=== PATIENT | female | born 1990 | race American Indian/Alaskan Native ===

== ENCOUNTER 2019-07-25 15:51 | Emergency (ER) | payer SELFPAY ==
[2019-07-25 15:56] VITALS: BP 149/90
--- NOTE | 2019-07-25 16:48 | Emergency Department Report ---
Chief Complaint: Skin/Abscess/Foreign Body Stated Complaint: GROIN PAIN Time Seen by Provider: 07/25/19 16:39 - HPI History of Present Illness: 29-year-old -[place] female presents to the emergency room for 2-day history of swelling and painful irritated labia. Patient states that it started Thursday she had taken some bhvf-dgb-[id number] antibiotics she started feeling like she had some irritation and itchiness down in her vaginal area. Patient denies any vaginal discharge. Patient reports that is worse with movement. Patient reports that her last menstrual period was 06/24/2019 and she is not currently on any control. 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 - Exam Vital Signs: Vital Signs 07/25/19 15:55 Temperature 98.5 F Pulse Rate 77 Respiratory 20 Rate Blood Pressure 149/90 O2 Sat by Pulse 99 Oximetry Physical Exam: Alert and oriented x3 no acute distress nontoxic in appearance sitting comfortably on the bed eating chips with her child Groin exam piercing coitus gil piercing. Nonerythematous no edematous appreciated no vaginal discharge appreciated. Recommend patient to follow-up with her RABBET OPERATOR. MSE screening note: Focused history and physical exam performed. Due to findings the following was ordered: 29-year-old -[place] female presents to the emergency room for 2-day history of swelling and painful irritated labia. Patient states that it started Thursday she had taken some jswb-per-wptewqj antibiotics she started feeling like she had some irritation and itchiness down in her vaginal area. Patient denies any vaginal discharge. Patient reports that is worse with movement. Patient reports that her last menstrual period was 06/24/2019 and she is not currently on any control. 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 Examination of the vaginal area seems to be within normal limits. She does have a piercing. ED Disposition for MSE Disposition: Z- MED SCREENING EXAM-LEFT Is pt being admited?: No Does the pt Need Aspirin: No Condition: Stable Additional Instructions: Follow-up with your RABBET OPERATOR for further evaluation. Referrals: Your, RABBET OPERATOR [Other] - 3-5 Days
== END 2019-07-25 17:07 | disposition left against medical advice (07) ==
LOC: ED 15:51
DX: N89.8 Other specified noninflammatory disorders of vagina (principal); Z53.21 Procedure and treatment not carried out due to patient leaving prior to being seen by health care provider

== ENCOUNTER 2020-01-20 22:43 | Emergency (ER) | payer MEDICAID ==
--- NOTE | 2020-01-21 02:34 | Emergency Department Report ---
ED ENT HPI - General Chief complaint: Sore Throat Stated complaint: SORE THROAT/CHILLS Time Seen by Provider: 01/21/20 02:30 Source: patient Mode of arrival: Ambulatory Limitations: No Limitations - History of Present Illness Initial comments: Patient is a 29-year-old F Mongolian female has had 3 days of sore throat and sinus congestion. Patient states there is pain with swallowing 6 out of 10 in severity. Has had subjective fevers and chills. She denies nausea vomiting diarrhea. Cough is very minimal. States she is having yellowish discharge from the nose when she blows her nose. - Related Data Previous Rx's Medication Instructions Recorded Last Taken Type Amoxicillin/Potassium Clav 1 each PO BID #14 tablet 01/21/20 Unknown Rx [Augmentin 875-125 Tablet] Fluticasone [Flonase] 1 spray NS QDAY #1 bottle 01/21/20 Unknown Rx HYDROcodone/ACETAMINOPHEN 15 ml PO Q6H PRN #100 solution 01/21/20 Unknown Rx [Hydrocodon-Acetamin 7.5-325/15] predniSONE [Deltasone] 20 mg PO QDAY #5 tab 01/21/20 Unknown Rx Allergies Allergy/AdvReac Type Severity Reaction Status Date / Time No Known Allergies Allergy Unverified 07/25/19 15:55 ED Dental HPI - General Chief complaint: Sore Throat Stated complaint: SORE THROAT/CHILLS Time Seen by Provider: 01/21/20 02:30 Source: patient Mode of arrival: Ambulatory Limitations: No Limitations - Related Data Previous Rx's Medication Instructions Recorded Last Taken Type Amoxicillin/Potassium Clav 1 each PO BID #14 tablet 01/21/20 Unknown Rx [Augmentin 875-125 Tablet] Fluticasone [Flonase] 1 spray NS QDAY #1 bottle 01/21/20 Unknown Rx HYDROcodone/ACETAMINOPHEN 15 ml PO Q6H PRN #100 solution 01/21/20 Unknown Rx [Hydrocodon-Acetamin 7.5-325/15] predniSONE [Deltasone] 20 mg PO QDAY #5 tab 01/21/20 Unknown Rx Allergies Allergy/AdvReac Type Severity Reaction Status Date / Time No Known Allergies Allergy Unverified 07/25/19 15:55 ED Review of Systems ROS: Stated complaint: SORE THROAT/CHILLS Other details as noted in HPI Comment: All other systems reviewed and negative ED Past Medical Hx - Past Medical History Previous Medical History?: No - Surgical History Past Surgical History?: Yes Additional Surgical History: Tubal Ligation - Social History Smoking Status: Never Smoker Substance Use Type: None - Medications Home Medications: Home Medications Medication Instructions Recorded Confirmed Last Taken Type Amoxicillin/Potassium Clav 1 each PO BID #14 tablet 01/21/20 Unknown Rx [Augmentin 875-125 Tablet] Fluticasone [Flonase] 1 spray NS QDAY #1 bottle 01/21/20 Unknown Rx HYDROcodone/ACETAMINOPHEN 15 ml PO Q6H PRN #100 solution 01/21/20 Unknown Rx [Hydrocodon-Acetamin 7.5-325/15] predniSONE [Deltasone] 20 mg PO QDAY #5 tab 01/21/20 Unknown Rx ED Physical Exam - General Limitations: No Limitations General appearance: alert, in no apparent distress - Head Head exam: Present: atraumatic, normocephalic - Expanded Head Exam Expanded 1 - tenderness - Eye Eye exam: Present: normal appearance - ENT ENT exam: Present: mucous membranes moist - Expanded ENT Exam Expanded Ear exam: Present: normal external inspection Mouth exam: Absent: drooling, trismus, muffled voice, tongue elevation Throat exam: Positive: tonsillar erythema, tonsillomegaly, tonsillar exudate - Neck Neck exam: Present: lymphadenopathy - Respiratory Respiratory exam: Present: normal lung sounds bilaterally. Absent: respiratory distress, wheezes, rales, rhonchi - Cardiovascular Cardiovascular Exam: Present: regular rate, normal rhythm. Absent: systolic murmur, diastolic murmur, rubs, gallop - GI/Abdominal GI/Abdominal exam: Present: soft, normal bowel sounds - Extremities Exam Extremities exam: Present: normal inspection - Back Exam Back exam: Present: normal inspection - Neurological Exam Neurological exam: Present: alert, oriented X3 - Psychiatric Psychiatric exam: Present: normal affect, normal mood - Skin Skin exam: Present: warm, dry, intact, normal color. Absent: rash ED Course Vital Signs 01/20/20 23:40 Temperature 98.3 F Pulse Rate 95 H Respiratory 16 Rate Blood Pressure 152/92 O2 Sat by Pulse 100 Oximetry ED Medical Decision Making - Medical Decision Making Patient treated for exudative pharyngitis with possible sinus infections to be discharged home Critical care attestation.: If time is entered above; I have spent that time in minutes in the direct care of this critically ill patient, excluding procedure time. ED Disposition Clinical Impression: Exudative pharyngitis, Sinus congestion Disposition: DC-01 TO HOME OR SELFCARE Is pt being admited?: No Does the pt Need Aspirin: No Condition: Stable Instructions: Pharyngitis Referrals: REGINA VARGAS MD [Primary Care Provider] - 3-5 Days Time of Disposition: 02:34
[2020-01-21 03:21] VITALS: BP 136/89
== END 2020-01-21 03:02 | disposition home or self-care (01) ==
LOC: ED 22:43
DX: J02.9 Acute pharyngitis, unspecified (principal); Z98.51 Tubal ligation status; Z79.899 Other long term (current) drug therapy
CPT/HCPCS: 99282

== ENCOUNTER 2021-01-20 10:06 | Emergency (ER) | payer MEDICAID, MEDICARE ==
[2021-01-20] MEDS ORDERED: IBUPROFEN 800 MG TAB PO ONE (10:48)
--- NOTE | 2021-01-20 11:22 | Emergency Department Report ---
ED Lower Extremity HPI - General Chief Complaint: Extremity Injury, Lower Stated Complaint: LEFT ANKLE INJURY Time Seen by Provider: 01/20/21 10:44 Source: patient Mode of arrival: Wheelchair Limitations: No Limitations - History of Present Illness Initial Comments: This is a 30-year-old female nontoxic, well nourished in appearance, no acute signs of distress presents to the ED with c/o of left ankle pains x 1 day. Patient stated that while at work she twisted her ankle. Patient denies any injuries or trauma. Patient denies any numbness, tingling, fever, chills, nausea, vomiting, chest pain, shortness of breath, headache, stiff neck. Patient denies any joint swelling or joint redness. Patient denies decreased range of motion. Patient stated has decreased gait due to pain. Patient denies any allergies or significant past medical history. MD Complaint: ankle injury -: days(s) Injury: Ankle: Left Type of Injury: inversion Place: work Severity: mild Severity scale (0 -10): 8 Improves With: immobilization Worsens With: weight bearing, movement, palpation Associated Symptoms: swelling, able to partially bear weight. denies: snap/pop sensation, numbness, tingling, unable to bear weight - Related Data Previous Rx's Medication Instructions Recorded Last Taken Type Amoxicillin/Potassium Clav 1 each PO BID #14 tablet 01/21/20 Unknown Rx [Augmentin 875-125 Tablet] Fluticasone [Flonase] 1 spray NS QDAY #1 bottle 01/21/20 Unknown Rx HYDROcodone/ACETAMINOPHEN 15 ml PO Q6H PRN #100 solution 01/21/20 Unknown Rx [Hydrocodon-Acetamin 7.5-325/15] predniSONE [Deltasone] 20 mg PO QDAY #5 tab 01/21/20 Unknown Rx Naproxen 500 mg PO Q12H PRN #12 tablet 01/20/21 Unknown Rx Allergies Allergy/AdvReac Type Severity Reaction Status Date / Time No Known Allergies Allergy Unverified 07/25/19 15:55 ED Review of Systems ROS: Stated complaint: LEFT ANKLE INJURY Other details as noted in HPI Comment: All other systems reviewed and negative Constitutional: denies: chills, fever Eyes: denies: eye pain, eye discharge, vision change ENT: denies: ear pain, throat pain Respiratory: denies: cough, shortness of breath, wheezing Cardiovascular: denies: chest pain, palpitations Endocrine: no symptoms reported Gastrointestinal: denies: abdominal pain, nausea, diarrhea Genitourinary: denies: urgency, dysuria, discharge Musculoskeletal: denies: back pain, joint swelling, arthralgia Skin: denies: rash, lesions Neurological: denies: headache, weakness, paresthesias Psychiatric: denies: anxiety, depression Hematological/Lymphatic: denies: easy bleeding, easy bruising ED Past Medical Hx - Surgical History Additional Surgical History: Tubal Ligation - Social History Smoking Status: Never Smoker Substance Use Type: None - Medications Home Medications: Home Medications Medication Instructions Recorded Confirmed Last Taken Type Amoxicillin/Potassium Clav 1 each PO BID #14 tablet 01/21/20 Unknown Rx [Augmentin 875-125 Tablet] Fluticasone [Flonase] 1 spray NS QDAY #1 bottle 01/21/20 Unknown Rx HYDROcodone/ACETAMINOPHEN 15 ml PO Q6H PRN #100 solution 01/21/20 Unknown Rx [Hydrocodon-Acetamin 7.5-325/15] predniSONE [Deltasone] 20 mg PO QDAY #5 tab 01/21/20 Unknown Rx Naproxen 500 mg PO Q12H PRN #12 tablet 01/20/21 Unknown Rx ED Physical Exam - General Limitations: No Limitations General appearance: alert, in no apparent distress - Head Head exam: Present: atraumatic, normocephalic - Eye Eye exam: Present: normal appearance - Neck Neck exam: Present: normal inspection, full ROM. Absent: lymphadenopathy - Respiratory Respiratory exam: Absent: respiratory distress - Cardiovascular Cardiovascular Exam: Present: regular rate - Extremities Exam Extremities exam: Present: full ROM, tenderness, normal capillary refill, other (left negative escobedo test). Absent: pedal edema, joint swelling, calf tenderness - Expanded Lower Extremity Exam Left Hip exam: Present: normal inspection, full ROM. Absent: tenderness, swelling Upper Leg exam: Present: normal inspection, full ROM. Absent: tenderness, swelling Knee exam: Present: normal inspection, full ROM. Absent: tenderness, swelling Lower Leg exam: Present: normal inspection, full ROM. Absent: tenderness, swelling, abrasion, laceration, ecchymosis, deformity, crepidus, dislocation, erythema, palpable cord, Salma's sign Ankle exam: Present: normal inspection, full ROM, tenderness. Absent: swelling, abrasion, laceration, ecchymosis, deformity, crepidus, dislocation, erythema, anterior draw sign Foot/Toe exam: Present: normal inspection, full ROM. Absent: tenderness, swelling, abrasion, laceration, ecchymosis, deformity, crepidus, dislocation, erythema, amputation, puncture wound, foreign body, calcaneal tenderness, tenderness at base of 5th metatarsal, nail avulsion, subungual hematoma Neuro vascular tendon exam: Present: no vascular compromise Gait: Positive: observed and limited by pain 1 - pain here - Back Exam Back exam: Present: normal inspection, full ROM. Absent: tenderness, CVA tenderness (R), CVA tenderness (L), muscle spasm, paraspinal tenderness, vertebral tenderness, rash noted - Neurological Exam Neurological exam: Present: alert, oriented X3 - Psychiatric Psychiatric exam: Present: normal affect, normal mood - Skin Skin exam: Present: warm, dry, intact, normal color. Absent: rash ED Course Vital Signs 01/20/21 10:30 Temperature 98.6 F Pulse Rate 70 Respiratory 18 Rate Blood Pressure 125/84 O2 Sat by Pulse 98 Oximetry - Reevaluation(s) Reevaluation #1: 01/20/21 11:25 Patient is speaking in full sentences with no signs of distress noted. ED Lower Extremity MDM - Radiology Data [facility] [address] [place] [address] XRay Report Signed Patient: TIAN ASHLEY MR#: [id number] : 1990 Acct:[id number] Age/Sex: 30 / F ADM Date: 01/20/21 Loc: ED Attending Dr: Ordering Physician: SUZIE RODRÍGUEZ NP Date of Service: 01/20/21 Procedure(s): XR ankle 3+V LT Accession Number(s): [id number] cc: SUZIE RODRÍGUEZ NP Fluoro Time In Minutes: LEFT FOOT 3 VIEWS LEFT ANKLE 3 VIEWS INDICATION / CLINICAL INFORMATION: Pain in left foot and ankle, twisting injury. COMPARISON: None available. FINDINGS: LEFT FOOT: BONES and JOINT(S): No acute fracture or subluxation. No significant arthritis. SOFT TISSUES: No significant abnormality. ADDITIONAL FINDINGS: None. LEFT ANKLE: BONES and JOINT(S): No acute fracture or subluxation. No significant arthritis. SOFT TISSUES: No significant abnormality. ADDITIONAL FINDINGS: None. IMPRESSION: 1. No acute findings. Signer Name: Ethan Sahu MD Signed: 01/20/2021 11:19 AM Workstation Name: [id number] [id number] Transcribed By: MIGUELANGEL Dictated By: Ethan Sahu MD Electronically Authenticated By: Ethan Sahu MD Signed Date/Time: 01/20/211118 DD/ 17 TD/TT: [address] [address] XRay Report Signed Patient: TIAN ASHLEY MR#: [id number] : 1990 Acct:[id number] Age/Sex: 30 / F ADM Date: 01/20/21 Loc: ED Attending Dr: Ordering Physician: SUZIE RODRÍGUEZ NP Date of Service: 01/20/21 Procedure(s): XR foot 3+V LT Accession Number(s): [id number] cc: SUZIE RODRÍGUEZ NP Fluoro Time In Minutes: LEFT FOOT 3 VIEWS LEFT ANKLE 3 VIEWS INDICATION / CLINICAL INFORMATION: Pain in left foot and ankle, twisting injury. COMPARISON: None available. FINDINGS: LEFT FOOT: BONES and JOINT(S): No acute fracture or subluxation. No significant arthritis. SOFT TISSUES: No significant abnormality. ADDITIONAL FINDINGS: None. LEFT ANKLE: BONES and JOINT(S): No acute fracture or subluxation. No significant arthritis. SOFT TISSUES: No significant abnormality. ADDITIONAL FINDINGS: None. IMPRESSION: 1. No acute findings. Signer Name: Ethan Sahu MD Signed: 01/20/2021 11:19 AM Workstation Name: [id number] Transcribed By: MIGUELANGEL Dictated By: Ethan Sahu MD Electronically Authenticated By: Ethan Sahu MD Signed Date/Time: 01/20/211118 DD/ 17 TD/TT: - Medical Decision Making This is a 30-year-old female that presents with left ankle injury. Patient is stable and was examined by me. I referred patient to an orthopedic doctor for further evaluation for possible MRI. X-ray has been obtained and dictated by the radiologist. Patient is notified of the x-ray report with noted by the patient. Patient does have normal gait with some tenderness and no joint swelling. No ecchymosis. no joint redness or swelling. Not warm to touch. No signs of cellulites present. Patient received a ankle immobilize and crutches. Patient to be educated by RN how to use crutches. Patient was instructed to RICE therapy. Patient received Motrin for pain. Patient is discharged with naproxen. At time of discharge, the patient does not seem toxic or ill in appearance. No acute signs of distress noted. Patient agrees to discharge treatment plan of care. No further questions noted by the patient. Critical care attestation.: If time is entered above; I have spent that time in minutes in the direct care of this critically ill patient, excluding procedure time. ED Disposition Clinical Impression: Left ankle injury Qualifiers: Encounter type: initial encounter Qualified Code(s): S99.912A - Unspecified injury of left ankle, initial encounter Disposition: HOME / SELF CARE / HOMELESS Is pt being admited?: No Does the pt Need Aspirin: No Condition: Stable Instructions: RICE Therapy for Routine Care of Injuries, Gjsb-pj-Qqcl, Crutch Use, Adult, Rzjh-wc-Gtyy, Ankle Sprain Additional Instructions: Follow-up with a orthopedic doctor in 3-5 days or if symptoms worsen and continue return to emergency room as soon as possible. No physical activity that extremity until cleared by orthopedic doctor Prescriptions: Naproxen 500 mg PO Q12H PRN #12 tablet PRN Reason: Pain , Severe (7-10) Referrals: JACY BONDS MD [Primary Care Provider] - 3-5 Days NATHALIE KRISHNAN MD [Staff Physician] - 3-5 Days Forms: Work/School Release Form(ED) Time of Disposition: 11:28
[2021-01-20 11:35] VITALS: BP 125/84
== END 2021-01-20 12:10 | disposition home or self-care (01) ==
LOC: ED 10:06
DX: S99.812A Other specified injuries of left ankle, initial encounter (principal); X58.XXXA Exposure to other specified factors, initial encounter; Y93.89 Activity, other specified; Y92.89 Other specified places as the place of occurrence of the external cause; Y99.8 Other external cause status

== ENCOUNTER 2021-06-17 10:00 | Emergency (ER) | payer MEDICAID, MEDICARE ==
[2021-06-17] MEDS ORDERED: LIDOCAINE-MPF (1%) 10 MG/1 ML VIAL 5 ML INFILTRATI ONE (11:25)
[2021-06-17] MEDS ORDERED: dexAMETHasone 4 MG/ML VIAL IM ONE (11:25)
[2021-06-17] MEDS ORDERED: KETOROLAC 30 MG/1 ML INJ IM ONE (11:25)
--- NOTE | 2021-06-17 11:25 | Emergency Department Report ---
Minor Respiratory - HPI Chief Complaint: Sore Throat Stated Complaint: SORE THROAT/HARD TO SWOLLOW/FEVER Time Seen by Provider: 06/17/21 11:20 Duration: 2 Days Pain Location: Throat Severity: mild Minor Respiratory: Yes Sore Throat, Yes Able to Tolerate Fluids, Yes Cough, No Rhinorrhea, No Ear Pain, No Sick Contacts, No Hemoptysis, No Chest Pain, No Shortness of Breath, No Fever Other History: Patient is a 31-year-old female that comes to the emergency room with a sore throat. She is hoarse. She denies fever. She has a cough that is worse when lying down. Patient is ambulatory, nontoxic and czz-jne-yobkdemhu when she arrives in the fast track. Vital signs are stable. She is controlling secretions. ABCs intact. ED Review of Systems ROS: Stated complaint: SORE THROAT/HARD TO SWOLLOW/FEVER Other details as noted in HPI Comment: All other systems reviewed and negative ED Past Medical Hx - Past Medical History Previous Medical History?: Yes - Surgical History Past Surgical History?: Yes Additional Surgical History: Tubal Ligation - Family History Family history: no significant - Social History Smoking Status: Never Smoker Substance Use Type: None - Medications Home Medications: Home Medications Medication Instructions Recorded Confirmed Last Taken Type Amoxicillin/Potassium Clav 1 each PO BID #14 tablet 01/21/20 Unknown Rx [Augmentin 875-125 Tablet] Fluticasone [Flonase] 1 spray NS QDAY #1 bottle 01/21/20 Unknown Rx HYDROcodone/ACETAMINOPHEN 15 ml PO Q6H PRN #100 solution 01/21/20 Unknown Rx [Hydrocodon-Acetamin 7.5-325/15] predniSONE [Deltasone] 20 mg PO QDAY #5 tab 01/21/20 Unknown Rx Naproxen 500 mg PO Q12H PRN #12 tablet 01/20/21 Unknown Rx Amoxicillin [Trimox CAP] 500 mg PO BID #20 capsule 06/17/21 Unknown Rx methylPREDNISolone [Medrol 4MG 4 mg PO FS #1 tab.ds.pk 06/17/21 Unknown Rx DOSEPAK (21 tabs)] Minor Respiratory Exam - Exam General: Vital signs noted. No distress. Alert and acting appropriately. HEENT: Yes Pharyngeal Erythema, Yes Pharyngeal Exudates, Yes Moist Mucous Membranes, No Rhinorrhea, No Conjuctival Injection, No Frontal Tenderness, No Maxillary Tenderness Ear: Neither TM Bulge, Neither TM Erythema, Neither EAC Pain, Neither EAC Discharge Neck: Yes Supple, No Adenopathy Lungs: Yes Good Air Exchange, No Wheezes, No Ronchi, No Stridor, No Cough, No Labored Respirations, No Retractions, No Use of Accessory Muscles, No Other Ab normal Lung Sounds Heart: Yes Regular, No Murmur Abdomen: Yes Normal Bowel Sounds, No Tenderness, No Peritoneal Signs Skin: No Rash, No Edema Neurologic: Alert and oriented, no deficits. Musculoskeletal: Unremarkable. ED Course Vital Signs 06/17/21 10:51 Temperature 98.8 F Pulse Rate 82 Respiratory 22 Rate Blood Pressure 145/85 [Right] O2 Sat by Pulse 100 Oximetry ED Medical Decision Making - Medical Decision Making Vital Signs 06/17/21 10:51 Temperature 98.8 F Pulse Rate 82 Respiratory 22 Rate Blood Pressure 145/85 [Right] O2 Sat by Pulse 100 Oximetry Patient medicated with a gram of Rocephin, Toradol and Decadron. She was able to swallow Tylenol without difficulty. Vital signs are stable. ABCs are intact. Patient being discharged home with discharge plan of care including diet, activity, medications and follow-up. She verbalizes understanding of plan of care - Differential Diagnosis URI Critical care attestation.: If time is entered above; I have spent that time in minutes in the direct care of this critically ill patient, excluding procedure time. ED Disposition Clinical Impression: Exudative pharyngitis Disposition: 01 HOME / SELF CARE / HOMELESS Is pt being admited?: No Does the pt Need Aspirin: No Condition: Stable Instructions: Pharyngitis, Zdvh-kv-Ykbv Additional Instructions: Meds as ordered today. Stay well-hydrated with water Motrin or Tylenol for pain or fever Follow-up with PCP in 48 hours to make sure this is getting better. Referral below Referrals: NICOLASA CHRISTIANSON MD [Staff Physician] - 3-5 Days Time of Disposition: 12:03
[2021-06-17] MEDS ORDERED: ACETAMINOPHEN 500 MG TAB PO ONE (11:26)
[2021-06-17 12:34] VITALS: BP 125/80
== END 2021-06-17 12:44 | disposition home or self-care (01) ==
LOC: ED 10:00
DX: J02.9 Acute pharyngitis, unspecified (principal)
CPT/HCPCS: 96372; 99282; J0696; J1100; J1885; J3490

== ENCOUNTER 2021-10-01 22:47 | Emergency (ER) | payer OTHER, MEDICAID ==
[2021-10-02] MEDS ORDERED: IBUPROFEN 600 MG TAB PO ONE (04:31)
[2021-10-02] MEDS ORDERED: ACETAMINOPHEN 500 MG TAB PO ONE (04:31)
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
[2021-10-02 06:35] VITALS: BP 127/76
== END 2021-10-02 06:35 | disposition home or self-care (01) ==
LOC: ED 22:47
DX: S83.92XA Sprain of unspecified site of left knee, initial encounter (principal); M62.838 Other muscle spasm; M62.830 Muscle spasm of back; V89.2XXA Person injured in unspecified motor-vehicle accident, traffic, initial encounter; Y93.89 Activity, other specified; Y92.89 Other specified places as the place of occurrence of the external cause; Y99.8 Other external cause status
CPT/HCPCS: 70450; 72125; 99284